=== PATIENT | female | born 1970 | race Caucasian/White ===

== ENCOUNTER 2023-10-24 21:48 | Inpatient (IN) | payer MEDICARE, SELFPAY ==
[2023-10-24] MEDS ORDERED: KETAMINE 100 MG/ML (5ML VIAL) ONE (21:59)
[2023-10-24] MEDS ORDERED: Rocuronium Bromide 10 MG/ML (10ML VIAL) ONE (21:59)
[2023-10-24 22:10] LABS: #Monocytes 0.9 thou/uL (0.11-0.59); #Neutrophils 9.1 thou/uL (1.40-6.50); %Basophils 0.2 % (0.0-1.0); %Eosinophils 0.2 % (0.0-10.0); %Lymphocytes 8.9 % (21.0-51.0); %Neutrophils 81.9 % (42.0-75.0); Hematocrit 34.3 % (36.0-47.0); Hemoglobin 10.2 g/dL (12.0-16.0); Mean Corpuscular HGB CONC 29.7 g/dL (32.0-36.0); Mean Corpuscular Hemoglobin 27.9 pg (27.0-31.0); Mean Platelet Volume 10.3 fL (7.4-10.4); Platelet Count 318 10x3/uL (130-400); RBC Distribution Width 18.3 % (11.5-14.5); Red Blood Cell (RBC) Count 3.65 mill/uL (4.20-5.40); White Blood Cell (WBC) Count 11.1 10x3/uL (4.8-10.8)
[2023-10-24] MEDS ORDERED: Propofol 1,000 MG/100 ML VIAL IV ONE (22:17)
[2023-10-24 22:22] LABS: BHCG - Serum Negative (NEGATIVE); Pregs Control Background? CLEAR/WHITE (CLR/WHITE); Pregs Control Bar Appear? YES (CONTROL BAR)
[2023-10-24 22:27] LABS: INR-International Normal Ratio 1.3; PTT 36.8 sec (22.9-36.1); Prothrombin Time 15.8 sec (12.0-14.7)
[2023-10-24 22:35] LABS: Actual Bicarbonate (HCO3a) 25.6 mEq/L (22-28); Analyzer IN Cardio ER; Base Excess (BEa) 0.6 mEq/L (-2.0 to +3.0); CO2 Tension 42.6 mmHg (35.0-45.0); Calcium, Ionized (arterial) 0.96 mmol/L (1.12-1.30); Carboxyhemoglobin (COHb) 7.6 gm% (0.0-3.0); Hematocrit-ABG 31 % (36.0-47.0); Hemoglobin (Hb) 10.4 g/dL (12.0-16.0); O2 Tension (PaO2), arterial 97.7 mmHg (80.0-100.0); Potassium - ABG Lab 5.67 mmol/L (3.70-5.30); pH, Arterial 7.396 (7.35-7.45)
[2023-10-24] MEDS ORDERED: Piperacillin/Tazobactam 4.5 GM VIAL ONE (23:41)
[2023-10-24] MEDS ORDERED: Sodium Chloride 0.9% 100 ML ONE (23:41)
[2023-10-25 00:05] LABS: ALT (SGPT) 10 U/L (8-55); AST (SGOT) 21 U/L (5-34); Albumin 2.6 g/dL (3.5-5.0); Alkaline Phosphatase 61 U/L (40-110); Anion Gap 15 mmol/L (10-20); BUN (Urea Nitrogen) 11 mg/dL (9.8-20.1); Bilirubin, Total 0.2 mg/dL (0.2-1.2); Calc. Creatinine Clearance 0 mL/min (70-130); Carbon Dioxide 25 mmol/L (22-29); Chloride 97 mmol/L (98-107); Estimated GFR 55; Globulin 2.6 g/dL (2.4-3.5); Glucose 162 mg/dL (70-105); Lipase 8 U/L (8-78); Magnesium 1.5 mg/dL (1.6-2.6); Protein, Total 5.2 g/dL (6.0-8.3); Sodium 130 mmol/L (136-145)
[2023-10-25 00:12] LABS: Calcium 6.7 mg/dL (7.8-10.44); Critical Call Chemistry NUR.SH13 @0011; Potassium 7.1 mmol/L (3.5-5.1)
[2023-10-25] MEDS ORDERED: CALCIUM GLUC 1 GM (50 ML) BAG ONE (00:36)
[2023-10-25] MEDS ORDERED: Insulin Regular 300 UNITS/3 ML VIAL ONE (00:39)
[2023-10-25] MEDS ORDERED: Albuterol 2.5 MG (3 mL) NEB ONE (01:13)
[2023-10-25 01:27] LABS: Lactic Acid 3.3 mmol/L (0.5-2.2)
[2023-10-25] MEDS ORDERED: Acetaminophen 650 MG Suppository PR PRN (01:37)
[2023-10-25] MEDS ORDERED: Ondansetron PF 4 MG/2 ML Vial IVP PRN (01:37)
[2023-10-25] MEDS ORDERED: Acetaminophen 325 MG TAB PO PRN (01:37)
[2023-10-25] MEDS ORDERED: Ondansetron ODT 4 MG TAB PO PRN (01:37)
[2023-10-25 01:40] LABS: ALT (SGPT) 11 U/L (8-55); AST (SGOT) 22 U/L (5-34); Albumin 2.9 g/dL (3.5-5.0); Alkaline Phosphatase 70 U/L (40-110); Anion Gap 15 mmol/L (10-20); BUN (Urea Nitrogen) 11 mg/dL (9.8-20.1); Bilirubin, Total 0.4 mg/dL (0.2-1.2); Calc. Creatinine Clearance 0 mL/min (70-130); Carbon Dioxide 22 mmol/L (22-29); Chloride 101 mmol/L (98-107); Critical Call Chemistry NUR.SH13 @0138; Estimated GFR 54; Globulin 2.8 g/dL (2.4-3.5); Glucose 145 mg/dL (70-105); Phosphorus 4.5 mg/dL (2.3-4.7); Potassium 6.4 mmol/L (3.5-5.1); Protein, Total 5.7 g/dL (6.0-8.3); Sodium 132 mmol/L (136-145)
[2023-10-25] MEDS ORDERED: Dextrose 50% Abboject 50 ML SYRINGE SLOW IVP PRN ×2 (01:48→02:01)
[2023-10-25] MEDS ORDERED: Electrolyte Replacement Protocol 1 EACH FS PRN (01:48)
[2023-10-25] MEDS ORDERED: Glucagon 1 MG/ML KIT IM PRN (01:48)
[2023-10-25] MEDS ORDERED: HumaLOG 300 UNITS/3 ML VIAL SC PRN ×2 (01:48)
[2023-10-25] MEDS ORDERED: Dextrose 5% in Water 1,000 ML IV PRN (01:48)
[2023-10-25] MEDS ORDERED: Ipratropium/Albuterol 3 ML NEB NEB PRN (01:52)
[2023-10-25] MEDS ORDERED: Fentanyl CADD 100 ML IV SCH (02:00)
[2023-10-25] MEDS ORDERED: Propofol BOLUS 1,000 MG/100 ML VIAL IV PRN (02:00)
[2023-10-25] MEDS ORDERED: DISCONTINUE PREVIOUS NARCOTIC PAIN MEDICATIONS AND BENZODIAZEPINES FS SCH (02:00)
[2023-10-25] MEDS ORDERED: Morphine 2 MG/ML VIAL SLOW IVP PRN (02:00)
[2023-10-25] MEDS ORDERED: Propofol 1,000 MG/100 ML VIAL IV PRN (02:00)
[2023-10-25] MEDS ORDERED: Fentanyl BOLUS 250 ML IVPB PRN (02:00)
[2023-10-25] MEDS ORDERED: Lorazepam 2 MG/ML VIAL SLOW IVP PRN (02:00)
[2023-10-25] MEDS ORDERED: Furosemide 40 MG (4 mL) VIAL ONE (02:05)
[2023-10-25] MEDS: Albuterol 2.5 MG (3 mL) NEB NEB SCH (02:57)
[2023-10-25] MEDS: Ventilator Sedation Protocol 1 EACH FS ONE (03:15)
[2023-10-25] MEDS: Vancomycin (BATCH) 1.25 GM in Premix 1 BAG IVPB SCH (03:15)
[2023-10-25 03:22] VITALS: BMI 24.7
[2023-10-25] MEDS: Lactated Ringer's 1,000 ML IV SCH (03:24)
[2023-10-25] MEDS: Cefepime 2 GM in Sodium Chloride 0.9% 100 ML IVPB SCH (03:24)
[2023-10-25] MEDS: methylPREDNISolone Sod Succ 40 MG VIAL IVP SCH (03:25)
[2023-10-25] MEDS: Insulin Regular 300 UNITS/3 ML VIAL IVP SCH (03:25)
[2023-10-25] MEDS: Magnesium 2 GM/50 ML(in water) 2 GM in Premix 1 BAG IVPB SCH (03:25)
[2023-10-25 03:37] LABS: Puncture Site RBA
[2023-10-25 03:46] LABS: pH (venous) 7.425 (7.32-7.43)
[2023-10-25 03:47] LABS: Actual Bicarbonate (HCO3v) 20.3 mEq/L (22-28); Base Excess -3.2 mEq/L (-2.0 to +3.0); Calcium, Ionized (venous) 0.87 mmol/L (1.16-1.32); Chloride (VBG) 103 mmol/L (98-106); Hematocrit-VBG 34 % (36.0-47.0); Hemoglobin (Hb) 11.4 g/dL (11.7-16.0); Potassium (VBG) 3.88 mmol/L (3.70-5.30); Sodium 135 mmol/L (133-146)
[2023-10-25] MEDS: Sodium Polystyrene Sulfonate 15 GM (60 mL) BOT PER TUBE SCH (03:50)
[2023-10-25 04:10] LABS: #Monocytes 1.3 thou/uL (0.11-0.59); #Neutrophils 7.4 thou/uL (1.40-6.50); %Basophils 0.2 % (0.0-1.0); %Eosinophils 0.1 % (0.0-10.0); %Lymphocytes 13.8 % (21.0-51.0); %Monocytes 12.8 % (0.0-10.0); %Neutrophils 72.7 % (42.0-75.0); Hematocrit 34.4 % (36.0-47.0); Hemoglobin 10.6 g/dL (12.0-16.0); Mean Corpuscular HGB CONC 30.8 g/dL (32.0-36.0); Mean Corpuscular Hemoglobin 27.7 pg (27.0-31.0); Mean Platelet Volume 11.2 fL (7.4-10.4); Platelet Count 230 10x3/uL (130-400); RBC Distribution Width 18.1 % (11.5-14.5); Red Blood Cell (RBC) Count 3.83 mill/uL (4.20-5.40); White Blood Cell (WBC) Count 10.2 10x3/uL (4.8-10.8)
[2023-10-25 04:12] LABS: Mean Corpuscular Volume 89.8 fl (78.0-98.0)
[2023-10-25 04:26] LABS: Anion Gap 19 mmol/L (10-20); BUN (Urea Nitrogen) 10 mg/dL (9.8-20.1); Calc. Creatinine Clearance 53 mL/min (70-130); Calcium 7.7 mg/dL (7.8-10.44); Carbon Dioxide 20 mmol/L (22-29); Chloride 102 mmol/L (98-107); Estimated GFR 59; Glucose 138 mg/dL (70-105); Potassium 3.8 mmol/L (3.5-5.1); Sodium 137 mmol/L (136-145)
[2023-10-25 04:29] LABS: Bacteria/HPF None Seen HPF (None Seen); Bilirubin Negative (Negative); Blood, Urine Negative (Negative); CAUTI Indications for Culture Alt mental st,lethar; Clarity Clear (Clear); Glucose, Urine (Dipstick) Normal (Negative); Ketone, Urine Negative (Negative); Leukocyte Negative Leu/uL (Negative); Nitrite Negative (Negative); Protein, Urine (Dipstick) Negative (Neg-Trace); Specific Gravity, Urine 1.045 (1.002-1.036); Squamous Epithelial None Seen HPF (0-3); Urobilinogen Normal mg/dL (Less than 2); WBC/HPF None Seen HPF (0-3); pH, Urine 6.5 (5.0-9.0)
[2023-10-25 04:30] LABS: Urine Culture Reflex No No
[2023-10-25 04:34] LABS: Amphetamine Not Detected (NotDetected); Barbiturates Screen Not Detected (NotDetected); Benzodiazepine Screen Detected (NotDetected); Cocaine Metabolite Screen Not Detected (NotDetected); Methadone Not Detected (NotDetected); Methamphetamine Not Detected (NotDetected); Opiate Screen Detected (NotDetected); Oxycodone Screen Not Detected (NotDetected); Phencyclidine (PCP) Not Detected (NotDetected); THC/Cannabinoid Screen Detected (NotDetected); Tricyclic Screen Not Detected (NotDetected)
[2023-10-25] MEDS: metroNIDAZOLE 500 MG in Premix 1 BAG IVPB SCH (05:44)
[2023-10-25] MEDS: Ipratropium/Albuterol 3 ML NEB NEB SCH (07:16)
[2023-10-25 07:33] LABS: Actual Bicarbonate (HCO3a) 19.5 mEq/L (22-28); Base Excess (BEa) -3.4 mEq/L (-2.0 to +3.0); CO2 Tension 28.7 mmHg (35.0-45.0); Calcium, Ionized (arterial) 1.07 mmol/L (1.12-1.30); Carboxyhemoglobin (COHb) 1.2 gm% (0.0-3.0); Hematocrit-ABG 35 % (36.0-47.0); Hemoglobin (Hb) 11.9 g/dL (12.0-16.0); O2 Tension (PaO2), arterial 76.7 mmHg (80.0-100.0); pH, Arterial 7.449 (7.35-7.45)
[2023-10-25 07:35] LABS: ALV-art Gradient 172.625 mmHg (0-20); Puncture Site LRA
[2023-10-25 08:16] LABS: Anion Gap 16 mmol/L (10-20); BUN (Urea Nitrogen) 10 mg/dL (9.8-20.1); Calc. Creatinine Clearance 64 mL/min (70-130); Calcium 7.7 mg/dL (7.8-10.44); Carbon Dioxide 19 mmol/L (22-29); Chloride 104 mmol/L (98-107); Estimated GFR 73; Glucose 175 mg/dL (70-105); Magnesium 2.3 mg/dL (1.6-2.6); Potassium 3.2 mmol/L (3.5-5.1); Sodium 136 mmol/L (136-145)
[2023-10-25] MEDS ORDERED: Vancomycin 1 GM in Sodium Chloride 0.9% 250 ML 250 ML IVPB SCH (09:00)
[2023-10-25] MEDS: Pantoprazole 40 MG VIAL IVP SCH (09:20)
[2023-10-25] MEDS: Enoxaparin 40 MG (0.4 mL) SYRINGE SC SCH (09:20)
[2023-10-25] MEDS: Potassium Chloride 20 MEQ in Premix 1 BAG IVPB SCH (09:59)
[2023-10-25] MEDS: fentaNYL 50 mcg/mL 1 mL Vial SLOW IVP SCH (11:05)
[2023-10-25 11:48] LABS: Anion Gap 15 mmol/L (10-20); BUN (Urea Nitrogen) 9 mg/dL (9.8-20.1); Calc. Creatinine Clearance 76 mL/min (70-130); Calcium 7.9 mg/dL (7.8-10.44); Carbon Dioxide 22 mmol/L (22-29); Chloride 104 mmol/L (98-107); Estimated GFR 90; Glucose 155 mg/dL (70-105); Potassium 3.9 mmol/L (3.5-5.1); Sodium 137 mmol/L (136-145)
[2023-10-25] MEDS: Morphine ER 30 MG TAB PO SCH ×2 (12:29→20:02)
[2023-10-25] MEDS: Cefepime 1 GM in Sodium Chloride 0.9% 100 ML IVPB SCH (13:18)
[2023-10-25] MEDS: HYDROcodone/Acetaminophen 10/325 mg Tablet PO SCH (13:21)
[2023-10-25] MEDS: ALPRAZolam 1 MG TAB PO SCH (14:26)
[2023-10-25] MEDS ORDERED: Lactated Ringer's 1,000 ML IV SCH (19:00)
[2023-10-26] MEDS: Vancomycin 1 GM in Premix 1 BAG IVPB SCH ×2 (00:20→13:55)
[2023-10-26 04:40] LABS: #Monocytes 0.7 thou/uL (0.11-0.59); #Neutrophils 8.9 thou/uL (1.40-6.50); %Lymphocytes 5.7 % (21.0-51.0); %Monocytes 7.2 % (0.0-10.0); %Neutrophils 86.1 % (42.0-75.0); Hematocrit 26.8 % (36.0-47.0); Hemoglobin 8.3 g/dL (12.0-16.0); Mean Corpuscular Volume 90.5 fl (78.0-98.0); Mean Platelet Volume 10.2 fL (7.4-10.4); Platelet Count 270 10x3/uL (130-400); RBC Distribution Width 18.2 % (11.5-14.5); Red Blood Cell (RBC) Count 2.96 mill/uL (4.20-5.40); White Blood Cell (WBC) Count 10.3 10x3/uL (4.8-10.8)
[2023-10-26 04:59] LABS: Hemoglobin A1c 5.8 % (4.0-6.0)
[2023-10-26 05:02] LABS: ALT (SGPT) 8 U/L (8-55); AST (SGOT) 8 U/L (5-34); Alkaline Phosphatase 61 U/L (40-110); Anion Gap 9 mmol/L (10-20); BUN (Urea Nitrogen) 8 mg/dL (9.8-20.1); Bilirubin, Total 0.2 mg/dL (0.2-1.2); Calc. Creatinine Clearance 91 mL/min (70-130); Calcium 8.3 mg/dL (7.8-10.44); Carbon Dioxide 28 mmol/L (22-29); Chloride 105 mmol/L (98-107); Estimated GFR 105; Globulin 2.4 g/dL (2.4-3.5); Glucose 148 mg/dL (70-105); Potassium 4.4 mmol/L (3.5-5.1); Protein, Total 5.4 g/dL (6.0-8.3); Sodium 138 mmol/L (136-145)
[2023-10-26] MEDS: predniSONE 20 MG TAB PO SCH (08:50)
[2023-10-26] MEDS ORDERED: Gabapentin 300 MG CAP PO PRN (12:32)
[2023-10-26] MEDS: Cefepime 2 GM in Sodium Chloride 0.9% 100 ML IVPB SCH (16:28)
[2023-10-26] MEDS: Morphine ER 30 MG TAB PO SCH (21:46)
[2023-10-27 07:26] LABS: #Eosinphils 0.1 thou/uL (0.0-0.7); #Neutrophils 7.4 thou/uL (1.40-6.50); %Basophils 0.1 % (0.0-1.0); %Eosinophils 0.9 % (0.0-10.0); %Lymphocytes 12.1 % (21.0-51.0); %Monocytes 10.3 % (0.0-10.0); %Neutrophils 76.1 % (42.0-75.0); Hematocrit 29.7 % (36.0-47.0); Hemoglobin 8.8 g/dL (12.0-16.0); Mean Corpuscular HGB CONC 29.6 g/dL (32.0-36.0); Mean Corpuscular Hemoglobin 27.2 pg (27.0-31.0); Mean Corpuscular Volume 91.7 fl (78.0-98.0); Mean Platelet Volume 9.4 fL (7.4-10.4); Platelet Count 294 10x3/uL (130-400); Red Blood Cell (RBC) Count 3.24 mill/uL (4.20-5.40); White Blood Cell (WBC) Count 9.7 10x3/uL (4.8-10.8)
[2023-10-27] MEDS ORDERED: Polyethylene Glycol 3350 17 GM Packet PO PRN (07:58)
[2023-10-27 07:59] LABS: Calcium 8.9 mg/dL (7.8-10.44); Chloride 103 mmol/L (98-107); Potassium 3.9 mmol/L (3.5-5.1); Sodium 139 mmol/L (136-145)
[2023-10-27 08:00] LABS: Glucose 88 mg/dL (70-105)
[2023-10-27 08:01] LABS: Anion Gap 10 mmol/L (10-20); Carbon Dioxide 30 mmol/L (22-29)
[2023-10-27 08:03] LABS: Calc. Creatinine Clearance 82 mL/min (70-130); Estimated GFR 99
[2023-10-27 08:04] LABS: BUN (Urea Nitrogen) 8 mg/dL (9.8-20.1)
[2023-10-27 08:10] LABS: Iron 20 ug/dL (50-170); Iron Binding Capacity, Total 318 mcg/dL (265-497)
[2023-10-27 08:39] LABS: Iron 18 ug/dL (50-170); Iron Binding Capacity, Total 325 mcg/dL (265-497)
[2023-10-27] MEDS: Morphine ER 30 MG TAB PO SCH (09:18)
[2023-10-27] MEDS: Escitalopram Oxalate 20 mg Tablet PO SCH (09:19)
[2023-10-27] MEDS: Senokot S 8.6-50 MG TAB PO SCH (09:19)
[2023-10-27 12:19] LABS: Vancomycin, Trough 15.3 ug/mL
[2023-10-27 12:41] VITALS: TEMP 97
[2023-10-27] MEDS ORDERED: Iron Sucrose Complex 200 MG in Sodium Chloride 0.9% 100 ML IVPB SCH (16:15)
[2023-10-27 17:42] VITALS: BP 119/65
[2023-10-28] MEDS ORDERED: FLU VACC QS2023-24(6MOS UP)/PF 60 MCG/0.5 ML SYRINGE IM ONE (09:00)
== END 2023-10-27 17:50 | disposition home or self-care (01) | DRG 871 ==
LOC: ERS 21:48 → CCU 10-25 01:26 → T4-B 10-26 09:26
PROVIDERS: ADMIT Student in an Organized Health Care Education/Training Program; ATTEND Internal Medicine
PROC: 4A133R1 Monitoring of Arterial Saturation, Peripheral, Percutaneous Approach (ICD-10-PCS; 2023-10-24)
PROC: 0T9B70Z Drainage of Bladder with Drainage Device, Via Natural or Artificial Opening (ICD-10-PCS; principal; 2023-10-25)
PROC: 0BH17EZ Insertion of Endotracheal Airway into Trachea, Via Natural or Artificial Opening (ICD-10-PCS; 2023-10-25)
PROC: 3E03329 Introduction of Other Anti-infective into Peripheral Vein, Percutaneous Approach (ICD-10-PCS; 2023-10-25)
PROC: 5A1935Z Respiratory Ventilation, Less than 24 Consecutive Hours (ICD-10-PCS; 2023-10-25)
DX: A41.9 Sepsis, unspecified organism (principal); G93.41 Metabolic encephalopathy; J96.01 Acute respiratory failure with hypoxia; J69.0 Pneumonitis due to inhalation of food and vomit; C34.90 Malignant neoplasm of unspecified part of unspecified bronchus or lung; E87.20 Acidosis, unspecified; N17.9 Acute kidney failure, unspecified; E87.1 Hypo-osmolality and hyponatremia; E44.0 Moderate protein-calorie malnutrition; E87.5 Hyperkalemia; E83.51 Hypocalcemia; E83.42 Hypomagnesemia; Z79.899 Other long term (current) drug therapy; F41.9 Anxiety disorder, unspecified; F31.9 Bipolar disorder, unspecified; F17.210 Nicotine dependence, cigarettes, uncomplicated; Z88.5 Allergy status to narcotic agent; N18.9 Chronic kidney disease, unspecified; I12.9 Hypertensive chronic kidney disease with stage 1 through stage 4 chronic kidney disease, or unspecified chronic kidney disease; D63.1 Anemia in chronic kidney disease; F12.10 Cannabis abuse, uncomplicated
CPT/HCPCS: 31500; 36415; 36416; 36600; 51702; 70450; 71045; 71275; 74177; 80048; 80053; 80202; 80306; 81001; 82550; 82728; 82805; 83036; 83540; 83550; 83605; 83615; 83690; 83735; 83880; 84100; 84145; 84484; 84550; 84703; 85025; 85610; 85730; 87040; 87081; 93005; 94002; 94640; 96365; 96367; 96375; C9113; J0613; J0692; J1650; J1815; J1940; J2543; J2704; J2920; J3010; J3370; J3370-JW; J3475; J3480; J3490; J7120; J7512; J7611; J7620

== ENCOUNTER 2023-10-29 23:55 | Inpatient (IN) | payer MEDICARE ==
[2023-10-30] MEDS ORDERED: LORazepam 2 MG/ML SYR.(CARPUJECT) ONE (00:30)
[2023-10-30 00:48] LABS: #Eosinphils 0.2 thou/uL (0.0-0.7); #Monocytes 1.1 thou/uL (0.11-0.59); #Neutrophils 9.7 thou/uL (1.40-6.50); %Basophils 0.2 % (0.0-1.0); %Eosinophils 1.5 % (0.0-10.0); %Lymphocytes 11.2 % (21.0-51.0); %Monocytes 8.7 % (0.0-10.0); %Neutrophils 77.9 % (42.0-75.0); Hematocrit 32.7 % (36.0-47.0); Hemoglobin 10.4 g/dL (12.0-16.0); Mean Corpuscular HGB CONC 31.8 g/dL (32.0-36.0); Mean Corpuscular Hemoglobin 27.5 pg (27.0-31.0); Mean Corpuscular Volume 86.5 fl (78.0-98.0); Mean Platelet Volume 9.4 fL (7.4-10.4); Platelet Count 330 10x3/uL (130-400); RBC Distribution Width 17.1 % (11.5-14.5); Red Blood Cell (RBC) Count 3.78 mill/uL (4.20-5.40); White Blood Cell (WBC) Count 12.4 10x3/uL (4.8-10.8)
[2023-10-30 01:04] LABS: ALT (SGPT) 12 U/L (8-55); AST (SGOT) 15 U/L (5-34); Albumin 3.4 g/dL (3.5-5.0); Alkaline Phosphatase 74 U/L (40-110); Anion Gap 20 mmol/L (10-20); BUN (Urea Nitrogen) 9 mg/dL (9.8-20.1); Bilirubin, Total 0.8 mg/dL (0.2-1.2); Calc. Creatinine Clearance 0 mL/min (70-130); Calcium 8.2 mg/dL (7.8-10.44); Carbon Dioxide 27 mmol/L (22-29); Chloride 98 mmol/L (98-107); Estimated GFR 106; Globulin 2.8 g/dL (2.4-3.5); Glucose 90 mg/dL (70-105); Potassium 3.5 mmol/L (3.5-5.1); Protein, Total 6.2 g/dL (6.0-8.3); Sodium 141 mmol/L (136-145)
[2023-10-30 03:26] LABS: Bacteria/HPF None Seen HPF (None Seen); Bilirubin Negative (Negative); Blood, Urine Negative (Negative); CAUTI Indications for Culture Alt mental st,lethar; Clarity Clear (Clear); Glucose, Urine (Dipstick) Normal (Negative); Ketone, Urine 20 mg/dL (Negative); Leukocyte 25 Leu/uL (Negative); Nitrite Negative (Negative); Protein, Urine (Dipstick) Negative (Neg-Trace); RBC/HPF None Seen HPF (0-3); Specific Gravity, Urine 1.008 (1.002-1.036); Squamous Epithelial None Seen HPF (0-3); Urobilinogen Normal mg/dL (Less than 2); WBC/HPF 0-3 HPF (0-3); pH, Urine 7.5 (5.0-9.0)
[2023-10-30 03:29] LABS: Urine Culture Reflex No No
[2023-10-30] MEDS ORDERED: Sodium Chloride 0.9% 100 ML ONE (04:53)
[2023-10-30] MEDS ORDERED: Cefepime 2 GM VIAL ONE (04:53)
[2023-10-30] MEDS ORDERED: Vancomycin 1 GM/200 ML (FROZEN) BAG ONE (05:00)
[2023-10-30 05:07] VITALS: BMI 22.8
[2023-10-30 05:24] LABS: Amphetamine Not Detected (NotDetected); Barbiturates Screen Not Detected (NotDetected); Benzodiazepine Screen Detected (NotDetected); Cocaine Metabolite Screen Not Detected (NotDetected); Methadone Not Detected (NotDetected); Methamphetamine Not Detected (NotDetected); Opiate Screen Detected (NotDetected); Oxycodone Screen Not Detected (NotDetected); Phencyclidine (PCP) Not Detected (NotDetected); THC/Cannabinoid Screen Detected (NotDetected); Tricyclic Screen Not Detected (NotDetected)
[2023-10-30] MEDS ORDERED: Bisacodyl 10 MG SUPP PR PRN (07:25)
[2023-10-30] MEDS ORDERED: VANCOMYCIN IVPB PRN (07:45)
[2023-10-30 07:48] LABS: Hemoglobin A1c 5.7 % (4.0-6.0)
[2023-10-30] MEDS: Meropenem 1 GM in Sodium Chloride 0.9% 100 ML IVPB SCH ×2 (08:43→17:23)
[2023-10-30] MEDS: Famotidine/PF 20 mg/2ml Vial SLOW IVP SCH (08:43)
[2023-10-30 08:54] LABS: Legionella Urinary Ag Negative (Negative); Strep pneumo Urine Ag NEGATIVE (NEGATIVE)
[2023-10-30 09:33] LABS: Actual Bicarbonate (HCO3v) 28.9 mEq/L (22-28); Base Excess 6.9 mEq/L (-2.0 to +3.0); Calcium, Ionized (venous) 0.99 mmol/L (1.16-1.32); Chloride (VBG) 97 mmol/L (98-106); Hematocrit-VBG 34 % (36.0-47.0); Hemoglobin (Hb) 11.4 g/dL (11.7-16.0); Sodium 137 mmol/L (133-146)
[2023-10-30] MEDS: Lactated Ringer's 1,000 ML IV SCH (09:34)
[2023-10-30 09:57] LABS: INR-International Normal Ratio 1.2
[2023-10-30] MEDS ORDERED: Electrolyte Replacement Protocol 1 EACH FS SCH (10:15)
[2023-10-30] MEDS ORDERED: Electrolyte Replacement Protocol FS PRN (10:30)
[2023-10-30] MEDS: Ondansetron PF 4 MG/2 ML Vial IVP PRN (10:49)
[2023-10-30 11:04] LABS: Influenza A by NAA Not Detected (NotDetected); Influenza B by NAA Not Detected (NotDetected); RSV by NAA Not Detected (NotDetected); SARS-CoV-2 NAA Rapid Test Not Detected (NotDetected)
[2023-10-30 11:08] LABS: Magnesium 1.5 mg/dL (1.6-2.6)
[2023-10-30] MEDS: Potassium Chloride 20 MEQ in Premix 1 BAG IVPB SCH ×2 (12:51→23:30)
[2023-10-30] MEDS: Magnesium 2 GM/50 ML(in water) 2 GM in Premix 1 BAG IVPB SCH (12:51)
[2023-10-30] MEDS: Vancomycin 1 GM in Premix 1 BAG IVPB SCH (17:58)
[2023-10-30 18:36] LABS: Anion Gap 19 mmol/L (10-20); BUN (Urea Nitrogen) 7 mg/dL (9.8-20.1); Calc. Creatinine Clearance 95 mL/min (70-130); Carbon Dioxide 28 mmol/L (22-29); Chloride 97 mmol/L (98-107); Estimated GFR 107; Glucose 90 mg/dL (70-105); Magnesium 2.2 mg/dL (1.6-2.6); Potassium 3.5 mmol/L (3.5-5.1); Sodium 140 mmol/L (136-145)
[2023-10-31 06:13] LABS: #Monocytes 0.7 thou/uL (0.11-0.59); #Neutrophils 9.4 thou/uL (1.40-6.50); %Basophils 0.2 % (0.0-1.0); %Eosinophils 0.2 % (0.0-10.0); %Lymphocytes 7.6 % (21.0-51.0); %Neutrophils 85.6 % (42.0-75.0); Hematocrit 34.7 % (36.0-47.0); Mean Corpuscular HGB CONC 31.7 g/dL (32.0-36.0); Mean Corpuscular Volume 85.3 fl (78.0-98.0); Mean Platelet Volume 8.8 fL (7.4-10.4); Platelet Count 320 10x3/uL (130-400); RBC Distribution Width 16.9 % (11.5-14.5); Red Blood Cell (RBC) Count 4.07 mill/uL (4.20-5.40)
[2023-10-31 06:47] LABS: ALT (SGPT) 12 U/L (8-55); AST (SGOT) 12 U/L (5-34); Albumin 3.4 g/dL (3.5-5.0); Alkaline Phosphatase 69 U/L (40-110); Anion Gap 20 mmol/L (10-20); BUN (Urea Nitrogen) 8 mg/dL (9.8-20.1); Bilirubin, Total 0.7 mg/dL (0.2-1.2); Calc. Creatinine Clearance 93 mL/min (70-130); Carbon Dioxide 24 mmol/L (22-29); Chloride 99 mmol/L (98-107); Estimated GFR 107; Globulin 2.7 g/dL (2.4-3.5); Glucose 93 mg/dL (70-105); Magnesium 2.5 mg/dL (1.6-2.6); Potassium 3.6 mmol/L (3.5-5.1); Protein, Total 6.1 g/dL (6.0-8.3); Sodium 139 mmol/L (136-145)
[2023-10-31] MEDS: Polyethylene Glycol 3350 17 GM Packet PO SCH (08:25)
[2023-10-31] MEDS: Acetaminophen 650 MG Suppository PR PRN (08:31)
[2023-10-31] MEDS ORDERED: Iopamidol-370 76% 500 ML MDV (1 ML CHARGE) ONE (09:04)
[2023-10-31] MEDS: Gabapentin 300 MG CAP PO SCH (10:42)
[2023-10-31] MEDS: Morphine ER 30 MG TAB PO PRN (10:42)
[2023-10-31] MEDS: Scopolamine 1 mg/72 hour Patch TD SCH (10:43)
[2023-10-31] MEDS: Promethazine HCl 12.5 MG in Sodium Chloride 0.9% 50 ML IVPB SCH (10:44)
[2023-10-31] MEDS: Pantoprazole 40 MG VIAL IVP SCH (11:37)
[2023-10-31] MEDS: Dexamethasone 4 mg/ml Vial SLOW IVP SCH (11:37)
[2023-10-31] MEDS: Morphine 4 MG/ML VIAL SLOW IVP PRN (11:37)
[2023-10-31] MEDS: Ipratropium/Albuterol 3 ML NEB NEB PRN (13:30)
[2023-10-31] MEDS: Lorazepam 2 MG/ML VIAL SLOW IVP SCH (14:40)
[2023-10-31] MEDS ORDERED: Vancomycin 1 GM in Premix 1 BAG IVPB SCH (17:30)
[2023-10-31 17:48] LABS: Vancomycin, Trough 13.2 ug/mL
[2023-10-31] MEDS ORDERED: Vancomycin HCl 750 MG in Sodium Chloride 0.9% 250 ML 250 ML IVPB SCH (18:00)
[2023-11-01] MEDS: Escitalopram Oxalate 20 mg Tablet PO SCH ×2 (01:50→08:32)
[2023-11-01] MEDS: QUEtiapine 25 MG TAB PO SCH ×2 (01:51→20:20)
[2023-11-01 05:17] LABS: #Monocytes 1.4 thou/uL (0.11-0.59); #Neutrophils 10.8 thou/uL (1.40-6.50); %Basophils 0.1 % (0.0-1.0); %Eosinophils 0.1 % (0.0-10.0); %Lymphocytes 8.5 % (21.0-51.0); %Monocytes 10.5 % (0.0-10.0); %Neutrophils 80.2 % (42.0-75.0); Hematocrit 31.4 % (36.0-47.0); Mean Corpuscular HGB CONC 31.8 g/dL (32.0-36.0); Mean Corpuscular Hemoglobin 27.2 pg (27.0-31.0); Mean Corpuscular Volume 85.6 fl (78.0-98.0); Mean Platelet Volume 9.9 fL (7.4-10.4); Platelet Count 305 10x3/uL (130-400); RBC Distribution Width 17.3 % (11.5-14.5); Red Blood Cell (RBC) Count 3.67 mill/uL (4.20-5.40); White Blood Cell (WBC) Count 13.5 10x3/uL (4.8-10.8)
[2023-11-01 06:00] LABS: ALT (SGPT) 8 U/L (8-55); AST (SGOT) 7 U/L (5-34); Albumin 3.1 g/dL (3.5-5.0); Alkaline Phosphatase 53 U/L (40-110); Anion Gap 12 mmol/L (10-20); BUN (Urea Nitrogen) 6 mg/dL (9.8-20.1); Bilirubin, Total 0.4 mg/dL (0.2-1.2); Calc. Creatinine Clearance 90 mL/min (70-130); Calcium 8.1 mg/dL (7.8-10.44); Carbon Dioxide 31 mmol/L (22-29); Chloride 102 mmol/L (98-107); Estimated GFR 106; Globulin 2.4 g/dL (2.4-3.5); Glucose 109 mg/dL (70-105); Potassium 2.9 mmol/L (3.5-5.1); Protein, Total 5.5 g/dL (6.0-8.3); Sodium 142 mmol/L (136-145)
[2023-11-01] MEDS: Potassium Chloride 20 MEQ in Premix 1 BAG IVPB SCH (08:30)
[2023-11-01] MEDS: ALPRAZolam 1 MG TAB PO PRN (08:32)
[2023-11-01] MEDS: Folic Acid 1 MG TAB PO SCH (08:32)
[2023-11-01] MEDS: Enoxaparin 40 MG (0.4 mL) SYRINGE SC SCH (08:34)
[2023-11-01] MEDS ORDERED: Pantoprazole 40 MG VIAL IVP SCH (09:00)
[2023-11-01] MEDS: HYDROcodone/Acetaminophen 5/325 mg Tablet PO PRN (12:24)
[2023-11-01] MEDS: Potassium Chloride 20 MEQ TAB PO SCH ×3 (13:07→16:22)
[2023-11-01] MEDS: HYDROcodone/Acetaminophen 10/325 mg Tablet PO PRN (16:22)
[2023-11-01] MEDS: Magnesium 2 GM/50 ML(in water) 2 GM in Premix 1 BAG IVPB SCH (17:00)
[2023-11-01] MEDS: Morphine ER 30 MG TAB PO SCH (20:20)
[2023-11-01] MEDS ORDERED: QUEtiapine 200 MG TAB PO SCH (21:00)
[2023-11-02 04:39] LABS: #Eosinphils 0.4 thou/uL (0.0-0.7); #Monocytes 0.8 thou/uL (0.11-0.59); #Neutrophils 4.8 thou/uL (1.40-6.50); %Basophils 0.1 % (0.0-1.0); %Eosinophils 4.7 % (0.0-10.0); %Lymphocytes 18.6 % (21.0-51.0); %Monocytes 11.4 % (0.0-10.0); %Neutrophils 64.8 % (42.0-75.0); Hematocrit 29.5 % (36.0-47.0); Hemoglobin 9.1 g/dL (12.0-16.0); Mean Corpuscular HGB CONC 30.8 g/dL (32.0-36.0); Mean Corpuscular Hemoglobin 27.6 pg (27.0-31.0); Mean Platelet Volume 9.9 fL (7.4-10.4); Platelet Count 274 10x3/uL (130-400); RBC Distribution Width 17.8 % (11.5-14.5); White Blood Cell (WBC) Count 7.4 10x3/uL (4.8-10.8)
[2023-11-02 05:15] LABS: Mean Corpuscular Volume 89.4 fl (78.0-98.0)
[2023-11-02 05:39] LABS: ALT (SGPT) 12 U/L (8-55); AST (SGOT) 11 U/L (5-34); Albumin 2.8 g/dL (3.5-5.0); Alkaline Phosphatase 50 U/L (40-110); Anion Gap 9 mmol/L (10-20); BUN (Urea Nitrogen) 6 mg/dL (9.8-20.1); Bilirubin, Total 0.3 mg/dL (0.2-1.2); Calc. Creatinine Clearance 93 mL/min (70-130); Calcium 7.8 mg/dL (7.8-10.44); Carbon Dioxide 31 mmol/L (22-29); Chloride 105 mmol/L (98-107); Estimated GFR 107; Globulin 2.2 g/dL (2.4-3.5); Glucose 103 mg/dL (70-105); Magnesium 2.1 mg/dL (1.6-2.6); Potassium 3.4 mmol/L (3.5-5.1); Sodium 142 mmol/L (136-145)
[2023-11-02 07:39] VITALS: BP 101/62; TEMP 98.1
[2023-11-02] MEDS: Potassium Chloride 20 MEQ TAB PO SCH (09:00)
[2023-11-02] MEDS ORDERED: Potassium Chloride 20 MEQ TAB PO SCH (10:00)
[2023-11-02 21:08] LABS: Mycoplasma pneumoniae IgG AB 564 U/mL (0-99); Mycoplasma pneumoniae IgM AB Less than 770 U/mL (0-769)
== END 2023-11-02 14:18 | disposition home or self-care (01) | DRG 871 ==
LOC: ERS 23:55 → ERHOLD 10-30 04:50 → T4-A 10-30 07:37 → OBSVTOIN 10-30 18:47
PROVIDERS: ADMIT Internal Medicine; ATTEND Internal Medicine
PROC: 0T9B70Z Drainage of Bladder with Drainage Device, Via Natural or Artificial Opening (ICD-10-PCS; principal; 2023-10-30)
PROC: 3E03329 Introduction of Other Anti-infective into Peripheral Vein, Percutaneous Approach (ICD-10-PCS; 2023-10-30)
DX: A41.9 Sepsis, unspecified organism (principal); G93.41 Metabolic encephalopathy; J18.9 Pneumonia, unspecified organism; C34.90 Malignant neoplasm of unspecified part of unspecified bronchus or lung; F31.9 Bipolar disorder, unspecified; K75.9 Inflammatory liver disease, unspecified; Z88.5 Allergy status to narcotic agent; Z79.899 Other long term (current) drug therapy; F17.210 Nicotine dependence, cigarettes, uncomplicated; I10 Essential (primary) hypertension; F41.9 Anxiety disorder, unspecified
CPT/HCPCS: 0241U; 36415; 70450; 70470; 71045; 71250; 74177; 80053; 80202; 80306; 81001; 82140; 82550; 82805; 83036; 83605; 83735; 85025; 85610; 85730; 87040; 87081; 87086; 87449; 87899; 93005; 93010; 93306; 94640; 96375; 96376; C9113; G0378; J0692; J1100; J1650; J2060; J2185; J2270; J2405; J2550; J3370-JW; J3475; J3480; J3490; J7120; J7620; Q9967; S0028

== ENCOUNTER 2023-11-08 17:11 | Inpatient (IN) | payer OTHER ==
[2023-11-08] MEDS ORDERED: LORazepam 2 MG/ML SYR.(CARPUJECT) IVP PRN (17:47)
[2023-11-08] MEDS ORDERED: Bisacodyl 10 MG SUPP PR PRN (17:50)
[2023-11-08] MEDS ORDERED: Acetaminophen 650 MG Suppository PR PRN (18:00)
[2023-11-08] MEDS ORDERED: Ondansetron PF 4 MG/2 ML Vial IVP PRN (18:00)
[2023-11-08] MEDS ORDERED: Haloperidol Lactate 5 MG/ML VIAL SLOW IVP PRN (18:00)
[2023-11-08] MEDS: Scopolamine 1 mg/72 hour Patch TOP PRN (19:42)
[2023-11-08] MEDS: Morphine 4 MG/ML VIAL SLOW IVP PRN (22:31)
[2023-11-09] MEDS: Pantoprazole 40 MG VIAL IVP SCH (08:39)
[2023-11-10] MEDS: Lorazepam 2 MG/ML VIAL SLOW IVP PRN (09:03)
[2023-11-11] MEDS: GLYCOPYRROLATE/PF 0.2 MG/ML VIAL SLOW IVP PRN (02:23)
[2023-11-12 08:55] VITALS: BP 137/78; TEMP 98.7
== END 2023-11-12 16:52 | disposition hospice, home (50) | DRG 951 ==
LOC: CCU 17:11 → T4-A 21:46
PROVIDERS: ADMIT Family Medicine; ATTEND Family Medicine
DX: Z51.5 Encounter for palliative care (principal); J96.01 Acute respiratory failure with hypoxia; A41.9 Sepsis, unspecified organism; K72.00 Acute and subacute hepatic failure without coma; G93.41 Metabolic encephalopathy; C34.90 Malignant neoplasm of unspecified part of unspecified bronchus or lung; N17.9 Acute kidney failure, unspecified; F31.9 Bipolar disorder, unspecified; I10 Essential (primary) hypertension; Z88.5 Allergy status to narcotic agent; Z79.899 Other long term (current) drug therapy; F17.210 Nicotine dependence, cigarettes, uncomplicated; E87.5 Hyperkalemia; D64.9 Anemia, unspecified
CPT/HCPCS: C9113; J2060; J2270; J3490